=== PATIENT | female | born 1990 | race Caucasian/White ===

== ENCOUNTER 2024-08-29 19:20 | Emergency (ER) | payer BC ==
[~2024-08-29] VITALS: Ht 152.4 cm; Wt 78.0 kg
[2024-08-29] MEDS ORDERED: EPIPEN AUTO INJECTOR 0.3 MG/0.3 ML ML IM ONE ×2 (19:33→19:45)
[2024-08-29] MEDS ORDERED: ADVAIR 250-501 EACH INH (19:43)
[2024-08-29] MEDS ORDERED: ALBUTEROL0.63 MG/3 INH (19:43)
[2024-08-29] MEDS ORDERED: FAMOTIDINE 20 MG TAB PO ONE (19:45)
[2024-08-29] MEDS ORDERED: diphenhydrAMINE HCL 50 MG CAP PO ONE (19:45)
[2024-08-29] MEDS ORDERED: predniSONE 20 MG TAB PO ONE (19:45)
[2024-08-29] MEDS ORDERED: EPIPEN 2-P0.3 MG/0.3 IM (20:36)
[2024-08-29] MEDS ORDERED: METHYLPREDNISOLO4 M1 PO (20:36)
[2024-08-29 20:45] VITALS: BP 153/82
== END 2024-08-29 20:45 | disposition home or self-care (01) ==
LOC: ED 19:20
DX: T78.1XXA Other adverse food reactions, not elsewhere classified, initial encounter (principal); L50.9 Urticaria, unspecified; J45.909 Unspecified asthma, uncomplicated; R06.02 Shortness of breath; Z88.2 Allergy status to sulfonamides; Z91.018 Allergy to other foods; Z79.51 Long term (current) use of inhaled steroids
CPT/HCPCS: 96372; 99284; J0171; J7512; Q0163